=== PATIENT | female | born 1990 | race Caucasian/White ===

== ENCOUNTER 2017-01-01 11:34 | Emergency (ER) | payer MEDICARE | END 2017-01-01 14:44 | disposition home or self-care (01) | LOC: ER1 11:34 | DX: F41.9 Anxiety disorder, unspecified (principal); Z88.5 Allergy status to narcotic agent; Z88.8 Allergy status to other drugs, medicaments and biological substances | CPT/HCPCS: 36415; 93005; 99283 ==

== ENCOUNTER → 2020-09-20 | Outpatient (CLI) | payer OTHER ==
[~2020-09-20] MED LIST: BUSPIRONE PO; FOLIC ACID1 MG PO; HYDROCODON-ACE1 EAC4 PO; LITHIUM CARBONATE PO; NEURONTIN600 MG PO; SRONYX 0.10-0.1 EACH PO; VITAMIN D21250 MCG PO
== END ==
LOC: NM 15:00
DX: R00.2 Palpitations (principal); R07.9 Chest pain, unspecified; R94.39 Abnormal result of other cardiovascular function study
CPT/HCPCS: 93270

== ENCOUNTER 2020-09-23 18:59 | Emergency (ER) | payer OTHER ==
[2020-11-07] MEDS ORDERED: FOLIC ACID1 MG PO (15:55)
[2020-11-07] MEDS ORDERED: LITHIUM CARBONATE PO (15:56)
[2020-11-07] MEDS ORDERED: NEURONTIN600 MG PO (15:56)
[2020-11-07] MEDS ORDERED: SRONYX 0.10-0.1 EACH PO (15:57)
[2020-11-07] MEDS ORDERED: BUSPIRONE PO (15:57)
[2020-11-07] MEDS ORDERED: VITAMIN D21250 MCG PO (15:58)
[2020-11-17] MEDS ORDERED: HYDROCODON-ACE1 EAC4 PO (12:24)
== END 2020-09-23 21:29 | disposition left against medical advice (07) ==
LOC: ER1 18:59
DX: Z53.21 Procedure and treatment not carried out due to patient leaving prior to being seen by health care provider (principal)

== ENCOUNTER → 2020-11-17 | Day surgery (SDC) | payer OTHER | END | disposition home or self-care (01) | LOC: OR 11-10 10:30 | DX: K80.64 Calculus of gallbladder and bile duct with chronic cholecystitis without obstruction (principal); K76.0 Fatty (change of) liver, not elsewhere classified; F41.9 Anxiety disorder, unspecified; F31.9 Bipolar disorder, unspecified; K21.9 Gastro-esophageal reflux disease without esophagitis; J45.909 Unspecified asthma, uncomplicated; E66.01 Morbid (severe) obesity due to excess calories; Z88.5 Allergy status to narcotic agent; Z88.8 Allergy status to other drugs, medicaments and biological substances; Z79.899 Other long term (current) drug therapy | CPT/HCPCS: 84703; 94660; 94760; J0690; J1100; J1885; J2250; J2405; J2704; J2710; J3010; J7030; J7120 ==

== ENCOUNTER 2021-04-22 12:02 | Emergency (ER) | payer OTHER ==
[2021-04-22 13:30] LABS: HEMOGLOBIN 13.4 gm/dl (12.3-15.3); RED BLOOD COUNT 4.65 M/UL (4.00-5.10); WHITE BLOOD COUNT 15.4 K/UL (4.5-11.0)
[2021-04-22 13:46] LABS: BUN/CREATININE RATIO 19 (0-10)
== END 2021-04-22 14:30 | disposition home or self-care (01) ==
LOC: ER1 12:02
PROVIDERS: Physician Assistant
DX: F41.0 Panic disorder [episodic paroxysmal anxiety] (principal)
CPT/HCPCS: 71045; 80048; 80178; 81001; 84439; 84443; 85025; 93005; 96374; 99284; J1200